=== PATIENT | female | born 1975 | race Caucasian/White ===

== ENCOUNTER 2023-08-28 12:52 | Outpatient (CLI) | payer OTHER | END 2023-08-28 12:53 | disposition critical access hospital (66) | LOC: EMS 12:52 | DX: L50.0 Allergic urticaria (principal); R09.89 Other specified symptoms and signs involving the circulatory and respiratory systems | CPT/HCPCS: A0425; A0427 ==

== ENCOUNTER 2023-08-28 12:55 | Emergency (ER) | payer OTHER ==
--- NOTE | 2023-08-28 13:06 | ED Physician Documentation ---
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 She was washing her hands with a new soap at work a few minutes before noon and suddenly developed the same reaction she gets with avocado, throat swelling and scratchiness as well as body wide hives. She shortly thereafter, around noon, administered a EpiPen to herself and symptoms resolved. On the way here she also received 5 0 mg of Benadryl. She is feeling normal now except sleepy from the Benadryl. PD PAST MEDICAL HISTORY - Present Medications Home Medications: Ambulatory Orders Medication Instructions Recorded Confirmed EPINEPHrine [Epinephrine] 0.3 mg IJ ONCE PRN #2 each 08/28/23 - Allergies Allergies/Adverse Reactions: Allergies Allergy/AdvReac Type Severity Reaction Status Date / Time avocado Allergy Anaphylaxis Verified 08/28/23 13:10 PD ED PE NORMAL - Vitals Vital signs reviewed: Yes - General General: Alert and oriented X 3, No acute distress - HEENT HEENT: Pharynx benign - Cardiac Cardiac: RRR, No murmur - Respiratory Respiratory: No respiratory distress, Clear bilaterally - Abdomen Abdomen: Non tender - Derm Derm: No rash - Neuro Neuro: Alert and oriented X 3, Normal speech Results - Vitals Vitals: Vital Signs - 24 hr 08/28/23 13:05 Temperature 36.5 C Heart Rate 94 Respiratory 15 Rate Blood Pressure 130/80 O2 Saturation 93 Oxygen O2 Source Room air PD Medical Decision Making - ED course ED course: 48-year-old woman with anaphylaxis to a new soap. Symptoms resolved after the self administration of epi. We will observe for a few hours to watch for recurrence of symptoms. She was observed for several hours during which she had no recurrence of symptoms. Departure - Departure Disposition: 01 Home, Self Care Clinical Impression: Anaphylaxis Qualifiers: Encounter type: initial encounter Qualified Code(s): T78.2XXA - Anaphylactic shock, unspecified, initial encounter Condition: Good Record reviewed to determine appropriate education?: Yes Instructions: ED Anaphylaxis General Prescriptions: EPINEPHrine [Epinephrine] 0.3 mg IJ ONCE PRN #2 each PRN Reason: Allergy Symptoms Comments: Its not 100% clear exactly what in the soap you reacted to, could have been the aloe? But not sure. You may want to follow-up with an [facility], especially if you start having other/more frequent episodes. Return for new or worsening symptoms. Forms: PCP List Discharge Date/Time: 08/28/23 15:01
[2023-08-28 13:12] VITALS: BP 130/80; O2SAT 93
== END 2023-08-28 15:01 | disposition home or self-care (01) ==
LOC: ED 12:55
DX: T78.2XXA Anaphylactic shock, unspecified, initial encounter (principal); X58.XXXA Exposure to other specified factors, initial encounter; Y93.E8 Activity, other personal hygiene; Y92.89 Other specified places as the place of occurrence of the external cause; Y99.0 Civilian activity done for income or pay
CPT/HCPCS: 99283